=== PATIENT | male | born 1945 | race Caucasian/White ===

== ENCOUNTER → 2019-07-29 | Outpatient (CLI) | payer MEDICARE | END | disposition home or self-care (01) | LOC: LABWHC1 12:43 | PROVIDERS: ATTEND Urology | DX: C61 Malignant neoplasm of prostate (principal) | CPT/HCPCS: 36415; 84153; 84403 ==

== ENCOUNTER → 2019-09-16 | Outpatient (CLI) | payer MEDICARE ==
--- NOTE | 2019-09-16 12:58 | XR ---
EXAMINATION TYPE: XR KUB DATE OF EXAM: 09/16/2019 12:34 PM CLINICAL HISTORY: Kidney stone. TECHNIQUE: Two Upright KUB images of the abdomen are obtained. COMPARISON: IVP October 31, 2011. FINDINGS: There are 2 adjacent right renal calculi overlying the right 12th rib midpole level right k idney measuring up to 5 mm in size. No definitive left-sided nephrolithiasis. Right more numerous janett n left pelvic phleboliths. Overall nonspecific but favor nonobstructive bowel gas pattern. Moderate s ize hiatal hernia is present. Patchy left lateral basilar linear scarring and/or atelectasis. Moderat e narrowing of both hip joints. IMPRESSION: There are 2 nonobstructing right renal calculi midpole level.
== END | disposition home or self-care (01) ==
LOC: RADXRMAIN 12:15
PROVIDERS: ATTEND Urology
DX: N20.0 Calculus of kidney (principal)
CPT/HCPCS: 74018

== ENCOUNTER → 2020-02-08 | Outpatient (CLI) | payer MEDICARE | END | disposition home or self-care (01) | LOC: LABWHC1 13:05 | PROVIDERS: ATTEND Urology | DX: C61 Malignant neoplasm of prostate (principal) | CPT/HCPCS: 36415; 84153; 84403 ==

== ENCOUNTER → 2020-08-20 | Outpatient (CLI) | payer MEDICARE ==
[2020-08-20 22:05] LABS: Prostate Specific Antigen <0.1 ng/mL (0.0-6.5)
== END | disposition home or self-care (01) ==
LOC: LABWHC1 13:39
PROVIDERS: ATTEND Urology
DX: C61 Malignant neoplasm of prostate (principal)
CPT/HCPCS: 36415; 84153; 84403

== ENCOUNTER → 2021-07-12 | Outpatient (CLI) | payer MEDICARE ==
[2021-07-12 16:35] LABS: African American GFR (CKD) >90 (>60 ml/min/1.73 sqM); Blood Urea Nitrogen 19 mg/dL (9-20); Non-African American GFR(CKD) >90 (>60 ml/min/1.73 sqM)
--- NOTE | 2021-07-15 07:19 | CT ---
EXAMINATION TYPE: CT abdomen pelvis wo/w con DATE OF EXAM: 07/12/2021 COMPARISON: None HISTORY: flank pain, hx of stones CT DLP: 1944.2 mGycm Automated exposure control for dose reduction was used. CONTRAST: CT scan of the abdomen pelvis is performed without and with IV Contrast, patient injected with 100 mL of Isovue 300. FINDINGS- Coronary artery calcification is noted there is a large hiatal hernia. Lung bases demonstrate linear changes most scar or atelectasis Lack of contrast limits assessment of the abdominal viscera and bowel. Grossly no sizable gallstone. Visualized liver and spleen are homogeneous. Adrenal glands normal morphology. Pancreas demonstrates no definite abnormality. There is a 8 mm mid pole right renal calculus. No hydronephrosis. Subcentimeter hypodensities within the left kidney are too small to characterize but statistically mo st likely related to cysts. Bowel gas pattern nonspecific. There is an anterior abdominal wall hernia containing several loops of bowel but no evidence of obstruction. Bladder distends normally. Calcifications in the pelvis appear vascular. Hypertrophic and degenerative changes of the spine. Atherosclerotic change aorta. IMPRESSION- 1. Nonobstructing 7 mm right renal calculus with no hydronephrosis. 2. Anterior abdominal wall hernia containing several bowel loops but no evidence of obstruction. 3. Large hiatal hernia. 4. Coronary artery calcification
== END | disposition home or self-care (01) ==
LOC: RADCTMAIN 15:34
PROVIDERS: ATTEND Urology
DX: C61 Malignant neoplasm of prostate (principal); N20.0 Calculus of kidney; R31.0 Gross hematuria; K44.9 Diaphragmatic hernia without obstruction or gangrene; K43.9 Ventral hernia without obstruction or gangrene; I25.10 Atherosclerotic heart disease of native coronary artery without angina pectoris
CPT/HCPCS: 82565; 84520; 74178; 36415; Q9967

== ENCOUNTER → 2021-07-25 | Outpatient (CLI) | payer MEDICARE ==
[2021-07-25 11:22] LABS: Basophils # (A) 0.1 k/uL (0-0.2); Basophils % (A) 1 %; Eosinophils # (A) 0.1 k/uL (0-0.7); Eosinophils % (A) 2 %; HGB 14.5 gm/dL (13.0-17.5); Lymphocytes % (A) 19 %; MCH 33.4 pg (25.0-35.0); MCHC 33.8 g/dL (31.0-37.0); MCV 98.9 fL (80.0-100.0); Mean Platelet Volume 7.8; Monocytes # (A) 0.5 k/uL (0-1.0); Monocytes % (A) 10 %; Neutrophils # (A) 3.5 k/uL (1.3-7.7); Neutrophils % (A) 66 %; Platelet Count 272 k/uL (150-450); RBC 4.35 m/uL (4.30-5.90); RDW 14.1 % (11.5-15.5); WBC 5.2 k/uL (3.8-10.6)
[2021-07-25 11:33] LABS: African American GFR (CKD) >90 (>60 ml/min/1.73 sqM); Anion Gap 9 mmol/L; Blood Urea Nitrogen 7 mg/dL (9-20); Calcium 9.8 mg/dL (8.4-10.2); Carbon Dioxide 23 mmol/L (22-30); Chloride 103 mmol/L (98-107); Glucose 159 mg/dL (74-99); Non-African American GFR(CKD) >90 (>60 ml/min/1.73 sqM); Potassium 4.5 mmol/L (3.5-5.1); Sodium 135 mmol/L (137-145)
== END | disposition home or self-care (01) ==
LOC: LABPAT 10:12
PROVIDERS: ATTEND Urology
DX: N20.0 Calculus of kidney (principal); N32.0 Bladder-neck obstruction
CPT/HCPCS: 36415; 80048; 85025

== ENCOUNTER 2021-08-02 07:03 | Day surgery (SDC) | payer MEDICARE ==
[2021-07-29 08:51] VITALS: BMI 27.3
--- NOTE | 2021-08-02 07:00 | P.GSHP ---
History of Present Illness H&P Date: 08/02/21 Chief Complaint: Back pain The patient is a 76-year-old white male with a history of prostate cancer. He underwent a robotic-assisted laparoscopic prostatectomy in 2013. He also has a history of kidney stones. KUB x-ray shows a 9 [address] renal calculus. CT scan confirms the presence of an 8 mm right mid pole renal calculus with no hydronephrosis. Alternative treatment options were reviewed, and he has elected to undergo ureteroscopy with laser lithotripsy. - Constitutional Constitutional: Reports weakness, Reports weight loss, Denies chills, Denies fever - Gastrointestinal Gastrointestinal: Denies nausea, Denies vomiting - Genitourinary (Male) Genitourinary: Reports flank pain, Reports kidney stones, Denies hematuria Past Medical History Past Medical History: Cancer, CVA/TIA, Hyperlipidemia, Hypertension Additional Past Medical History / Comment(s): kidney stones,hx 'mini" stroke approx 20 yrs ago-no residual,prostate CA 2013-no radiation or chemo History of Any Multi-Drug Resistant Organisms: None Reported Past Surgical History: Prostate Surgery Additional Past Surgical History / Comment(s): prostatectomy Past Anesthesia/Blood Transfusion Reactions: No Reported Reaction Additional Past Anesthesia/Blood Transfusion Reaction / Comment(s): no hx blood transfusion Smoking Status: Never smoker - Past Family History Mother Family Medical History: No Reported History Medications and Allergies Home Medications Medication Instructions Recorded Confirmed Type Metoprolol Tartrate [Lopressor] 50 mg PO HS 06/30/14 07/29/21 History Omeprazole [PriLOSEC] 20 mg PO QAM 06/30/14 07/29/21 History Atorvastatin Calcium [Lipitor] 20 mg PO DAILY 07/29/21 07/29/21 History Losartan Potassium [Cozaar] 25 mg PO QAM 07/29/21 07/29/21 History Allergies Allergy/AdvReac Type Severity Reaction Status Date / Time No Known Allergies Allergy Verified 07/29/21 08:36 Surgical - Exam - General well developed, well nourished, no distress - Respiratory normal respiratory effort - Abdomen Abdomen: soft, non tender, no guarding, no rigid, no rebound - Genitourinary normal penis with no external lesions, testicles non-tender - Psychiatric oriented to time, oriented to person, oriented to place, speech is normal, memory intact Results - Imaging CT scan - abdomen: report reviewed, image reviewed Assessment and Plan (1) Calculus of kidney Status: Acute Code(s): N20.0 - CALCULUS OF KIDNEY SNOMED Code(s): 30036904 Plan: Cystoscopy, right ureteroscopy with Holmium laser lithotripsy and possible stone basketing, right ureteral stent insertion. The procedure then reviewed in detail with the patient. He is aware of potential risks, which include anesthesia, bleeding, infection, and ureteral injury. He reports a weak urinary stream, and may have a vesical neck contracture. If this is identified, this will be incised using the cold knife. He is aware that this could result in incontinence.
[~2021-08-02 07:03] MED LIST: LIDOCAINE 1% (10MG/ML) FOR IV START INTRADERMA PRN
[2021-08-02] MEDS ORDERED: ONDANSETRON 4 MG/2 ML VIAL ONE (07:56)
[2021-08-02] MEDS: LACTATED RINGERS 1,000 ML IV SCH ×2 (07:57→08:51)
--- NOTE | 2021-08-02 08:09 | XR ---
EXAMINATION TYPE: XR KUB DATE OF EXAM: 08/02/2021 7:19 AM CLINICAL HISTORY: Kidney stones TECHNIQUE: Two supine KUB images of the abdomen are obtained. COMPARISON: CT abdomen and pelvis July 12, 2021 FINDINGS: Roughly 3 adjacent right renal calculi redemonstrated measuring up to 6 mm in size centrall y in the right kidney at L1 level. Inferior pelvic phleboliths redemonstrated. No definitive left-leatha ed nephrolithiasis. Paucity of bowel gas but favor overall nonobstructive bowel gas pattern. Moderate size hiatal hernia redemonstrated. Osseous structures are intact. IMPRESSION: Right-sided nephrolithiasis redemonstrated and stable.
[2021-08-02] MEDS ORDERED: fentaNYL (PF) 50 MCG/ML 2 ML AMP ONE (08:49)
[2021-08-02] MEDS ORDERED: DEXAMETHASONE SOD PHOSPHATE 10 MG/ML 1 ML VIAL ONE (08:49)
[2021-08-02] MEDS ORDERED: PROPOFOL 10 MG/ML 20 ML VIAL IV ONE (08:49)
[2021-08-02] MEDS ORDERED: LIDOCAINE 1% INJ 10MG/ML (20 ML MDV) ONE (08:49)
[2021-08-02] MEDS ORDERED: PHENYLEPHRINE-0.9% NACL SYG 1,000 MCG/10 ML SYRINGE ONE (08:49)
--- NOTE | 2021-08-02 10:47 | P.OP ---
Date of Procedure: 08/02/21 Preoperative Diagnosis: Right renal calculus Postoperative Diagnosis: Same Procedure(s) Performed: Cystoscopy, right ureteroscopy with Holmium laser lithotripsy and stone basketing, right ureteral stent insertion Anesthesia: PIERRE Surgeon: Juan Ramon Nixon Estimated Blood Loss (ml): 5 IV fluids (ml): 900 Pathology: other (Calculus fragments, sent for chemical analysis) Condition: stable Disposition: PACU Indications for Procedure: The patient is a 76-year-old white male with a history of prostate cancer. He underwent a robotic-assisted laparoscopic prostatectomy in 2013. He also has a history of kidney stones. KUB x-ray shows a 9 mm right renal calculus. CT scan confirms the presence of an 8 mm right mid pole renal calculus with no hydronephrosis. Alternative treatment options were reviewed, and he has elected to undergo ureteroscopy with laser lithotripsy. Operative Findings: 9 mm right renal calculus, fragmented completely. Description of Procedure: The patient was taken to the operating room and placed in the dorsolithotomy position, with legs supported in Heath stirrups. The external genitalia was prepped and draped sterilely. The 30 lens was used to introduce the 21-Beninese Amato cystoscopic sheath through the urethra and into the bladder under direct vision. The bladder neck was open, with no evidence of a vesical neck contracture. The bladder was examined in its entirety. Both ureteral orifices were normal anatomic location and configuration, and clear urine effluxed from both. No tumors or foreign bodies were seen. A 0.038 inch Glidewire was passed through the cystoscope. The right ureteral orifice was cannulated, and the Glidewire was advanced up to the renal pelvis. The cystoscope was removed, and an 11/13-Beninese ureteral access catheter was pas sed over the wire, up to the proximal ureter. The flexible ureteroscope was then passed through the ureteral access catheter sheath, up to the stone. The 272 micron Holmium laser probe was passed through the ureteroscope, and lithotripsy was performed. Dusting mode was used primarily, but the calculus began to fragment and the 1.9-Beninese nitinol basket was used to remove all calculus fragments, leaving only dust behind. The Glidewire was passed through the ureteral access catheter sheath, which was then removed. The Glidewire was backloaded into the cystoscope, which was passed into the bladder. A 26 cm, 4.8-Beninese double-J ureteral stent was placed over the wire, leaving the string attached to the stent. Proper stent positioning was verified fluoroscopically and endoscopically. The bladder was emptied and the cystoscope removed. Tegaderm dressing was used to secure the string to the penile shaft. The patient tolerated the procedure well and was taken to the recovery room in stable condition. [facility] Report: Procedure Acuity: Elective Stone Size and Location: 9 mm, right mid pole Ureteral Dilation: No Ureteral Access Sheath Used: Yes Stone Sent for Analysis: Yes All Stones/Fragments Were Removed with a Basket: Yes Complications: No Preoperative Antibiotics Given: Yes Stent Placed: Yes If Stent Placed, Was String Left Attached: Yes If Stent Placed, When is it to be Removed: 1 week Discharge Medications: None
--- NOTE | 2021-08-02 10:54 | FL ---
EXAMINATION TYPE: FL guidance operating room DATE OF EXAM: 08/02/2021 FLUOROSCOPY Fluoroscopy time of 34 seconds was used during cystoscopy, lithotripsy, right renal calculus. 4 imag e/s document/s the procedure.
[2021-08-02 11:00] VITALS: TEMP 96.8
[2021-08-02 11:59] VITALS: BP 156/85; PULSE 57; RESP 20
== END 2021-08-02 12:35 | disposition home or self-care (01) ==
LOC: OR 07:03
PROVIDERS: ATTEND Urology
DX: N20.0 Calculus of kidney (principal); E78.5 Hyperlipidemia, unspecified; I10 Essential (primary) hypertension; Z86.73 Personal history of transient ischemic attack (TIA), and cerebral infarction without residual deficits; Z85.46 Personal history of malignant neoplasm of prostate; Z90.79 Acquired absence of other genital organ(s); Z87.442 Personal history of urinary calculi; Z79.899 Other long term (current) drug therapy
CPT/HCPCS: 82365; 74018; 52356; C2625; J1100; J2405; J0690; J2001; J3010; J2370; J2704

== ENCOUNTER → 2021-09-30 | Outpatient (CLI) | payer MEDICARE ==
--- NOTE | 2021-10-01 10:43 | US ---
EXAMINATION TYPE: US kidneys/renal and bladder DATE OF EXAM: 09/30/2021 COMPARISON: CT July 12, 2021 CLINICAL HISTORY: N20.0 CALCULUS OF KIDNEY RT. H/O right renal calculus EXAM MEASUREMENTS: Right Kidney: 10.8 x 5.1 x 5.2 cm Left Kidney: 9.6 x 5.0 x 4.3 cm Difficult pt to scan, heavy breathing, moving Right Kidney: No evidence of hydro, possible 9mm calculus visualized mid pole Left Kidney: No evidence of hydro Bladder: wnl Bilateral Jets seen: No Suboptimal study due to patient inability to hold still. Shadowing 8-9 Mm nonobstructing right renal calculus redemonstrated. No hydronephrosis is seen. Bladder poorly distended and thus suboptimally ev aluated. No left-sided hydronephrosis or concerning renal masses. IMPRESSION: Stable nonobstructing 8 mm right renal calculus.
== END | disposition home or self-care (01) ==
LOC: RADUSWWP 15:16
PROVIDERS: ATTEND Urology
DX: N20.0 Calculus of kidney (principal)
CPT/HCPCS: 76770

== ENCOUNTER 2021-12-17 16:09 | Emergency (ER) | payer MEDICARE ==
[2021-12-17] MEDS ORDERED: SODIUM CHLORIDE 0.9% 1,000 ML IV STA ×2 (17:28→18:15)
[2021-12-17] MEDS ORDERED: ONDANSETRON 4 MG/2 ML VIAL IVP STA (17:28)
[2021-12-17] MEDS ORDERED: HYDROmorphone 0.5 MG/0.5 ML SYRINGE IVP STA (17:40)
[2021-12-17 18:00] LABS: ALT 119 U/L (4-49); AST 215 U/L (17-59); African American GFR (CKD) >90 (>60 ml/min/1.73 sqM); Albumin 3.5 g/dL (3.5-5.0); Alkaline Phosphatase 323 U/L (38-126); Anion Gap 15 mmol/L; Blood Urea Nitrogen 15 mg/dL (9-20); Calcium 9.4 mg/dL (8.4-10.2); Carbon Dioxide 19 mmol/L (22-30); Chloride 101 mmol/L (98-107); Glucose 168 mg/dL (74-99); Magnesium 1.6 mg/dL (1.6-2.3); Non-African American GFR(CKD) 89 (>60 ml/min/1.73 sqM); Phosphorus 2.8 mg/dL (2.5-4.5); Potassium 4.1 mmol/L (3.5-5.1); Sodium 135 mmol/L (137-145); Total Protein 7.5 g/dL (6.3-8.2)
--- NOTE | 2021-12-17 18:01 | ED ---
General Adult HPI - General Chief complaint: Nausea/Vomiting/Diarrhea Stated complaint: Recheck Time Seen by Provider: 12/17/21 17:15 Source: patient, family Mode of arrival: ambulatory Limitations: no limitations - History of Present Illness Initial comments: Patient is a 76-year-old male who presents to the emergency department with a chief complaint of dehydration and constipation. Patient was sent in for evaluation by Dr. Gogo guy. Patient was evaluated here on 12/05/21 for altered mental status with TIA diagnosis. At this time MRI of the brain favored an arachnoid cyst as well as 2 right sided intraparenchymal lesions. Metastatic disease could not be ruled out. Patient also had elevated AST, ALT, and alk phos. Pt subsequently had abdominal ultrasound which revealed possible stones in the gallbladder neck with dilated common bile duct. He also had a CT of the chest abdomen and pelvis which had concern for pancreatic head adenocarcinoma. Patient states he has not had a biopsy yet. Patient has been living at [facility] since discharge but states he is too weak to perform activities of daily living there. Patient continues to have severe back pain which he states is unchanged from before and was told it is likely due to the pancreatic mass. He denies recent back injury. Patient states he has not been eating or drinking due to na usea and lack of appetite. He denies vomiting. Patient states he is constipated with last bowel movement 1 week ago. He denies fever, chills, chest pain, shortness of breath, abdominal pain, blood in the stool, and urinary symptoms. Patient's friend is at bedside and states that his skin has become more yellow in the past week. Patient does have history of prostate cancer with prostatectomy in June 2014. Last PSA was checked in June 2021 which was less than 0.01. - Related Data Home Medications Medication Instructions Recorded Confirmed Atorvastatin Calcium [Lipitor] 20 mg PO DAILY 07/29/21 12/05/21 Cyclobenzaprine [Flexeril] 10 mg PO BID PRN 12/05/21 12/05/21 FLUoxetine HCL 40 mg PO BID 12/05/21 12/05/21 Loratadine [Claritin] 10 mg PO DAILY 12/05/21 12/05/21 Metoprolol Tartrate [Lopressor] 25 mg PO HS 12/05/21 12/05/21 HYDROcodone/APAP 7.5-325MG [[place] 1 tab PO Q4H PRN 12/17/21 12/17/21 7.5-325] Insulin Lispro [humaLOG Kwikpen] 5 unit SQ ACHS 12/17/21 12/17/21 Pantoprazole [Protonix] 40 mg PO DAILY 12/17/21 12/17/21 Tamsulosin [Flomax] 0.4 mg PO HS 12/17/21 12/17/21 Previous Rx's Medication Instructions Recorded Acetaminophen Tab [Tylenol] 650 mg PO Q6HR PRN tab 12/09/21 Cholestyramine (with Sugar) 4 gm PO BID #60 packet 12/09/21 [Questran] Doxycycline [Vibramycin] 100 mg PO BID 7 Days #14 capsule 12/09/21 Folic Acid 1 mg PO DAILY tab 12/09/21 Magnesium Oxide [Mag-Ox] 400 mg PO BID tab 12/09/21 Allergies Allergy/AdvReac Type Severity Reaction Status Date / Time No Known Allergies Allergy Verified 12/17/21 19:19 Review of Systems ROS Statement: Those systems with pertinent positive or pertinent negative responses have been documented in the HPI. ROS Other: All systems not noted in ROS Statement are negative. Past Medical History Past Medical History: CVA/TIA, Hyperlipidemia, Hypertension Additional Past Medical History / Comment(s): Mother and sister state lately pt has been acting differently/not eating much and losing alot of weight. Other hx: CVA with alittle R sided weakness, prostate cancer with surgery, nephrolithiasis removed with surgery, chronic low back pain, small hiatal hernia, benign colon polyps, hemorrhoids, anemia. History of Any Multi-Drug Resistant Organisms: MRSA Date of last positivie culture/infection: 12/05/21 MDRO Source:: MRSA URINE Past Surgical History: Unable to Obtain Additional Past Surgical History / Comment(s): Cysto with R sided lithotripsy with stone basketing and ureteral stent placed, prostatectomy, EGD with dilation, colonoscopies. Past Anesthesia/Blood Transfusion Reactions: No Reported Reaction Past Psychological History: Bipolar, Depression Smoking Status: Never smoker Past Alcohol Use History: None Reported Past Drug Use History: None Reported - Past Family History Father Family Medical History: Myocardial Infarction (PR) Additional Family Medical History / Comment(s): Father had 7 MIs with the first one at age 37 yrs. He had CABG Mother Family Medical History: Diabetes Mellitus Additional Family Medical History / Comment(s): recent hip fracture with surgery. General Exam Limitations: no limitations General appearance: alert, in no apparent distress Head exam: Present: atraumatic, normocephalic, normal inspection Eye exam: Present: PERRL, EOMI, scleral icterus, other (enopthlamos ). Absent: normal appearance ENT exam: Present: mucous membranes dry Respiratory exam: Present: normal lung sounds bilaterally. Absent: respiratory distress, wheezes, rales, rhonchi, stridor Cardiovascular Exam: Present: regular rate, normal rhythm, normal heart sounds. Absent: systolic murmur, diastolic murmur, rubs, gallop, clicks GI/Abdominal exam: Present: soft, normal bowel sounds. Absent: distended, tenderness, guarding, rebound, rigid Extremities exam: Absent: pedal edema Back exam: Present: normal inspection, full ROM. Absent: tenderness, paraspinal tenderness, vertebral tenderness Neurological exam: Present: alert, oriented X3, CN II-XII intact Psychiatric exam: Present: normal affect, normal mood Skin exam: Present: warm, dry, intact, other (skin is moderately jaundiced). Absent: normal color Course Vital Signs 12/17/21 16:11 Temperature 96.8 F L Pulse Rate 84 Respiratory 24 Rate Blood Pressure 105/67 O2 Sat by Pulse 96 Oximetry - Reevaluation(s) Reevaluation #1: Patient resting comfortably in bed. He states his pain is well controlled and he no longer feels nauseous. 12/17/21 20:07 EKG Findings - EKG Comments: EKG Findings:: KG taken at 18:24. Sinus rhythm with occasional supraventricular premature complexes. Ventricular rate 86. CO interval 208. QRS duration 89. QTc 442 Medical Decision Making - Medical Decision Making This is a 76-year-old male who presents from Dr. Bowens's office for severe dehydration and constipation. Thorough history and examination were performed. 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 Patient is jaundiced with scleral icterus and appears severely dehydrated with enophthalmos. The abdomen is soft and nontender. Total bilirubin, AST, and alk phos are increased from last blood draw on 12/09/21 at 11.0, 215, and 323 respectively. Patient was given large fluid bolus and Zofran for nausea. Dilaudid was given for severe back pain. KUB x-ray was obtained which showed no evidence of significant constipation. Results discussed with patient. Patient and I discussed the necessity for biliary stent. At this time we do not have GI services. Patient is agreeable to [facility] transfer for biliary stent placement and pancreatic biopsy. Reevaluation patient is resting in bed. He states that his pain is well controlled and he is no longer nauseous. Case discussed with Dr. Thompson at [facility]. Patient will be transferred to [facility] for further evaluation and management. Dr. Lovell is my attending. - Lab Data Result diagrams: 12/17/21 17:38 12/17/21 17:38 Lab Results 12/17/21 12/17/21 Range/Units 17:38 17:38 WBC 6.8 (3.8-10.6) k/uL RBC 4.60 (4.30-5.90) m/uL Hgb 15.4 (13.0-17.5) gm/dL Hct 47.3 (39.0-53.0) % MCV 102.8 H (80.0-100.0) fL MCH 33.4 (25.0-35.0) pg MCHC 32.5 (31.0-37.0) g/dL RDW 15.3 (11.5-15.5) % Plt Count 281 (150-450) k/uL MPV 10.1 Neutrophils % 75 % Lymphocytes % 12 % Monocytes % 9 % Eosinophils % 1 % Basophils % 1 % Neutrophils # 5.1 (1.3-7.7) k/uL Lymphocytes # 0.8 L (1.0-4.8) k/uL Monocytes # 0.6 (0-1.0) k/uL Eosinophils # 0.1 (0-0.7) k/uL Basophils # 0.1 (0-0.2) k/uL Macrocytosis Slight Sodium 135 L (137-145) mmol/L Potassium 4.1 (3.5-5.1) mmol/L Chloride 101 (98-107) mmol/L Carbon Dioxide 19 L (22-30) mmol/L Anion Gap 15 mmol/L BUN 15 (9-20) mg/dL Creatinine 0.77 (0.66-1.25) mg/dL Est GFR (CKD-EPI)AfAm >90 (>60 ml/min/1.73 sqM) Est GFR (CKD-EPI)NonAf 89 (>60 ml/min/1.73 sqM) Glucose 168 H (74-99) mg/dL Calcium 9.4 (8.4-10.2) mg/dL Phosphorus 2.8 (2.5-4.5) mg/dL Magnesium 1.6 (1.6-2.3) mg/dL Total Bilirubin 11.0 H (0.2-1.3) mg/dL AST 215 H (17-59) U/L ALT 119 H (4-49) U/L Alkaline Phosphatase 323 H (38-126) U/L Total Protein 7.5 (6.3-8.2) g/dL Albumin 3.5 (3.5-5.0) g/dL Disposition Clinical Impression: Hyperbilirubinemia, Weakness, Dehydration Disposition: OTHER INSTITUTION NOT DEFINED Condition: Fair Is patient prescribed a controlled substance at d/c from ED?: No Referrals: Neli Chacon [Primary Care Provider] - 1-2 days Time of Disposition: 20:31 - Out of Hospital Transfer - Req. Specs Out of Hospital Transfer - Requested Specifics: Other Non-Acute ([facility])
--- NOTE | 2021-12-17 18:18 | XR ---
EXAMINATION TYPE: XR KUB DATE OF EXAM: 12/17/2021 COMPARISON: 08/02/2021 HISTORY: Constipation TECHNIQUE: 2 views supine FINDINGS: There is no sign of intestinal obstruction or pneumoperitoneum. Fecal pattern is normal. Th ere is no evidence of any significant constipation. Lung bases are clear. There is 5 mm calcification over the lateral right mid abdomen. IMPRESSION: Nonacute abdomen. No evidence of any significant constipation.
[2021-12-17 18:22] LABS: Basophils # (A) 0.1 k/uL (0-0.2); Basophils % (A) 1 %; Eosinophils # (A) 0.1 k/uL (0-0.7); Eosinophils % (A) 1 %; HCT 47.3 % (39.0-53.0); HGB 15.4 gm/dL (13.0-17.5); Lymphocytes # (A) 0.8 k/uL (1.0-4.8); Lymphocytes % (A) 12 %; MCH 33.4 pg (25.0-35.0); MCHC 32.5 g/dL (31.0-37.0); MCV 102.8 fL (80.0-100.0); Macrocytosis Slight; Mean Platelet Volume 10.1; Monocytes # (A) 0.6 k/uL (0-1.0); Monocytes % (A) 9 %; Neutrophils # (A) 5.1 k/uL (1.3-7.7); Neutrophils % (A) 75 %; Platelet Count 281 k/uL (150-450); RDW 15.3 % (11.5-15.5); WBC 6.8 k/uL (3.8-10.6)
[2021-12-18 00:18] VITALS: BP 115/84; PULSE 79; RESP 19; TEMP 97.7
== END 2021-12-18 05:50 | disposition other institution (70) ==
LOC: EC 16:09
DX: E80.6 Other disorders of bilirubin metabolism (principal); E86.0 Dehydration; R53.1 Weakness; I10 Essential (primary) hypertension; Z86.73 Personal history of transient ischemic attack (TIA), and cerebral infarction without residual deficits; Z82.49 Family history of ischemic heart disease and other diseases of the circulatory system; Z20.822 Contact with and (suspected) exposure to COVID-19
CPT/HCPCS: 99284; 96374; 96375; 96361; 36415; 93005; 80053; 83735; 84100; 85025; 87635; 74018; J2405; J1170

== ENCOUNTER 2021-12-26 15:48 | Emergency (ER) | payer MEDICARE ==
[2021-12-26 16:05] VITALS: TEMP 97.7
[2021-12-26] MEDS ORDERED: SODIUM CHLORIDE 0.9% 500 ML 500 ML IV STA (18:37)
[2021-12-26] MEDS ORDERED: ONDANSETRON 4 MG/2 ML VIAL IVP STA ×2 (18:37→19:45)
[2021-12-26] MEDS ORDERED: MORPHINE SULFATE 4 MG/ML SYRINGE IV STA (18:37)
--- NOTE | 2021-12-26 18:44 | ED ---
Abdominal Pain HPI - General Chief Complaint: Abdominal Pain Stated Complaint: pain all over Time Seen by Provider: 12/26/21 18:32 Source: EMS Mode of arrival: EMS Limitations: physical limitation - History of Present Illness Initial Comments: 76-year-old male with a history of hyperlipidemia, hypertension, and previous TIAs. Patient has a history of prostate cancer with surgery. Patient also had a CVA with some residual right-sided weakness. Patient states he has had intermittent sharp lower abdominal pain more on the left side which started yesterday. Patient also states he has not had a bowel movement in over one week. Patient apparently voiced this to custodial staff and was sent here for evaluation. He denies any nausea or vomiting. Patient admittedly does not feel he is getting adequate care at the facility. No alleviating or exacerbating factors other than palpation. Patient states the pain does seem to radiate toward the groin area. No headache, no fever or chills, no changes in vision or hearing, no sore throat or difficulty with speech, no neck pain, no chest pain or shortness of breath, no nausea or vomiting, no changes in urination s, no numbness or tingling, no extremity pain, no skin rashes or lesions. - Related Data Home Medications Medication Instructions Recorded Confirmed Atorvastatin Calcium [Lipitor] 20 mg PO HS 07/29/21 12/26/21 Cyclobenzaprine [Flexeril] 10 mg PO BID PRN 12/05/21 12/26/21 FLUoxetine HCL 40 mg PO BID 12/05/21 12/26/21 Tamsulosin [Flomax] 0.4 mg PO DAILY 12/17/21 12/26/21 Acetaminophen Tab [Tylenol] 325 - 650 mg PO Q6HR PRN 12/26/21 12/26/21 Aspirin EC [Ecotrin Low Dose] 81 mg PO DAILY 12/26/21 12/26/21 Enoxaparin [Lovenox] 40 mg SQ DAILY 12/26/21 12/26/21 Magnesium Hydroxide [Milk of 2,400 mg PO Q72H PRN 12/26/21 12/26/21 Magnesia] Metoprolol Succinate (ER) [Toprol 25 mg PO DAILY 12/26/21 12/26/21 Xl] Na Phos,M-B/Na Phos,Di-Ba [Fleet 133 ml RECTAL DAILY PRN 12/26/21 12/26/21 Adult] Sennosides/Docusate Sodium [Senna 1 tab PO DAILY 12/26/21 12/26/21 Plus 8.6-50 mg Tablet] bisacodyL [Dulcolax] 10 mg RECTAL DAILY PRN 12/26/21 12/26/21 polyethylene glycoL 3350 [Miralax] 17 gm PO DAILY 12/26/21 12/26/21 Allergies Allergy/AdvReac Type Severity Reaction Status Date / Time No Known Allergies Allergy Verified 12/26/21 23:01 Review of Systems ROS Statement: Those systems with pertinent positive or pertinent negative responses have been documented in the HPI. ROS Other: All systems not noted in ROS Statement are negative. Past Medical History Past Medical History: CVA/TIA, Hyperlipidemia, Hypertension Additional Past Medical History / Comment(s): Mother and sister state lately pt has been acting differently/not eating much and losing alot of weight. Other hx: CVA with alittle R sided weakness, prostate cancer with surgery, nephrolithiasis removed with surgery, chronic low back pain, small hiatal hernia, benign colon polyps, hemorrhoids, anemia. History of Any Multi-Drug Resistant Organisms: MRSA Date of last positivie culture/infection: 12/05/21 MDRO Source:: MRSA URINE Past Surgical History: Unable to Obtain Additional Past Surgical History / Comment(s): Cysto with R sided lithotripsy with stone basketing and ureteral stent placed, prostatectomy, EGD with dilation, colonoscopies. Past Anesthesia/Blood Transfusion Reactions: No Reported Reaction Past Psychological History: Bipolar, Depression Smoking Status: Never smoker Past Alcohol Use History: None Reported Past Drug Use History: None Reported - Past Family History Father Family Medical History: Myocardial Infarction ([place]) Additional Family Medical History / Comment(s): Father had 7 MIs with the first one at age 37 yrs. He had CABG Mother Family Medical History: Diabetes Mellitus Additional Family Medical History / Comment(s): recent hip fracture with surgery. General Exam Limitations: physical limitation General appearance: alert, in no apparent distress Head exam: Present: atraumatic, normocephalic, normal inspection Eye exam: Present: normal appearance, PERRL, EOMI. Absent: scleral icterus, conjunctival injection, periorbital swelling ENT exam: Present: normal exam, normal oropharynx, mucous membranes moist Neck exam: Present: normal inspection, full ROM. Absent: tenderness, meningismus, lymphadenopathy Respiratory exam: Present: normal lung sounds bilaterally. Absent: respiratory distress, wheezes, rales, rhonchi, stridor Cardiovascular Exam: Present: regular rate, normal rhythm, normal heart sounds. Absent: systolic murmur, diastolic murmur, rubs, gallop, clicks GI/Abdominal exam: Present: soft, tenderness (Left lower quadrant), normal bowel sounds. Absent: distended, guarding, rebound, rigid exam: Present: circumcision, other (Patient does have a nondescript rash noted to the scrotal area. However this is not vesicular. Does not appear to be infectious in etiology. Not unilateral, does not follow a dermatome. No definitive tenderness, no edema). Absent: testicular tenderness, urethral discharge, scrotal swelling Extremities exam: Present: normal inspection, full ROM, normal capillary refill. Absent: tenderness, pedal edema, joint swelling, calf tenderness Back exam: Present: normal inspection Neurological exam: Present: alert, oriented X3, CN II-XII intact Psychiatric exam: Present: normal affect, normal mood Skin exam: Present: warm, dry, intact, normal color. Absent: rash Course Vital Signs 12/26/21 12/26/21 12/26/21 15:59 18:16 19:00 Temperature 97.7 F Pulse Rate 63 70 72 Respiratory 12 14 20 Rate Blood Pressure 140/87 133/95 133/89 O2 Sat by Pulse 100 94 L 98 Oximetry 12/26/21 12/26/21 12/26/21 21:00 22:00 23:08 Temperature Pulse Rate 75 76 76 Respiratory 18 18 18 Rate Blood Pressure 119/84 108/76 104/72 O2 Sat by Pulse 96 95 97 Oximetry - Reevaluation(s) Reevaluation #1: 12/26/211999 Medical record is reviewed Symptoms are improved Patient is informed of results and questions answered Patient in no distress Reevaluation #2: 12/26/21 23:51 Medical record is reviewed Symptoms are improved here in the emergency department Patient is informed of results and questions answered Patient in no distress Patient stable at discharge. Vital signs stable, patient afebrile. Medical Decision Making - Medical Decision Making Left lower quadrant and lower abdominal pain radiating to the groin area. Differential includes constipation, diverticulitis, other inflammatory versus infectious etiology. Less likely to be testicular related. Patient does have a nondescript rash noted to the scrotal area which is bilaterally. Does not appear to be infectious in etiology. Urinary tract infection possible but less likely. Presentation consistent with cardiopulmonary disease. There is no upper abdominal pain, no chest pain or shortness of breath. Apparently the patient has a history of pancreatic cancer and was supposed to have a hospice appointment today for evaluation. Patient became upset with staf f and verbally threatening them. He then called EMS for transport here. The case was discussed in detail with ED attending physician. Presentation, findings, treatment plan discussed in detail. Dr. Morales Patient's findings consistent with previous pancreatic mass. No findings in need of admission. We'll treat the patient's constipation. All questions answered.Follow-up with your regular physician as directed. Return to the ER immediately if any symptoms worsen, new symptoms arise, or any other problems develop. We'll notify the custodial. - Lab Data Result diagrams: 12/26/21 19:02 12/26/21 19:02 Lab Results 12/26/21 12/26/21 12/26/21 Range/Units 19:02 19:02 19:02 WBC 5.8 (3.8-10.6) k/uL RBC 3.97 L (4.30-5.90) m/uL Hgb 13.5 (13.0-17.5) gm/dL Hct 40.4 (39.0-53.0) % MCV 101.7 H (80.0-100.0) fL MCH 34.0 (25.0-35.0) pg MCHC 33.4 (31.0-37.0) g/dL RDW 15.5 (11.5-15.5) % Plt Count 225 (150-450) k/uL MPV 10.2 Neutrophils % 62 % Lymphocytes % 20 % Monocytes % 12 % Eosinophils % 2 % Basophils % 1 % Neutrophils # 3.6 (1.3-7.7) k/uL Lymphocytes # 1.2 (1.0-4.8) k/uL Monocytes # 0.7 (0-1.0) k/uL Eosinophils # 0.1 (0-0.7) k/uL Basophils # 0.0 (0-0.2) k/uL Macrocytosis Slight Sodium 134 L (137-145) mmol/L Potassium 3.8 (3.5-5.1) mmol/L Chloride 104 (98-107) mmol/L Carbon Dioxide 21 L (22-30) mmol/L Anion Gap 9 mmol/L BUN 17 (9-20) mg/dL Creatinine 0.47 L (0.66-1.25) mg/dL Est GFR (CKD-EPI)AfAm >90 (>60 ml/min/1.73 sqM) Est GFR (CKD-EPI)NonAf >90 (>60 ml/min/1.73 sqM) Glucose 154 H (74-99) mg/dL Plasma Lactic Acid Pato 1.6 (0.7-2.0) mmol/L Calcium 8.4 (8.4-10.2) mg/dL Total Bilirubin 3.0 H (0.2-1.3) mg/dL AST 92 H (17-59) U/L ALT 51 H (4-49) U/L Alkaline Phosphatase 241 H (38-126) U/L Total Protein 6.8 (6.3-8.2) g/dL Albumin 3.1 L (3.5-5.0) g/dL Amylase 39 (30-110) U/L Lipase 94 (23-300) U/L Urine Color Urine Appearance (Clear) Urine pH (5.0-8.0) Ur Specific [place] (1.001-1.035) Urine Protein (Negative) Urine Glucose (UA) (Negative) Urine Ketones (Negative) Urine Blood (Negative) Urine Nitrite (Negative) Urine Bilirubin (Negative) Urine Urobilinogen (<2.0) mg/dL Ur Leukocyte Esterase (Negative) Urine WBC (0-5) /hpf Amorphous Sediment (None) /hpf 12/26/21 Range/Units 20:30 WBC (3.8-10.6) k/uL RBC (4.30-5.90) m/uL Hgb (13.0-17.5) gm/dL Hct (39.0-53.0) % MCV (80.0-100.0) fL MCH (25.0-35.0) pg MCHC (31.0-37.0) g/dL RDW (11.5-15.5) % Plt Count (150-450) k/uL MPV Neutrophils % % Lymphocytes % % Monocytes % % Eosinophils % % Basophils % % Neutrophils # (1.3-7.7) k/uL Lymphocytes # (1.0-4.8) k/uL Monocytes # (0-1.0) k/uL Eosinophils # (0-0.7) k/uL Basophils # (0-0.2) k/uL Macrocytosis Sodium (137-145) mmol/L Potassium (3.5-5.1) mmol/L Chloride (98-107) mmol/L Carbon Dioxide (22-30) mmol/L Anion Gap mmol/L BUN (9-20) mg/dL Creatinine (0.66-1.25) mg/dL Est GFR (CKD-EPI)AfAm (>60 ml/min/1.73 sqM) Est GFR (CKD-EPI)NonAf (>60 ml/min/1.73 sqM) Glucose (74-99) mg/dL Plasma Lactic Acid [place] (0.7-2.0) mmol/L Calcium (8.4-10.2) mg/dL Total Bilirubin (0.2-1.3) mg/dL AST (17-59) U/L ALT (4-49) U/L Alkaline Phosphatase (38-126) U/L Total Protein (6.3-8.2) g/dL Albumin (3.5-5.0) g/dL Amylase (30-110) U/L Lipase (23-300) U/L Urine Color Yellow Urine Appearance Cloudy (Clear) Urine pH 7.5 (5.0-8.0) Ur Specific [place] 1.018 (1.001-1.035) Urine Protein Trace H (Negative) Urine Glucose (UA) 1+ H (Negative) Urine Ketones Negative (Negative) Urine Blood Negative (Negative) Urine Nitrite Negative (Negative) Urine Bilirubin Negative (Negative) Urine Urobilinogen <2.0 (<2.0) mg/dL Ur Leukocyte Esterase Negative (Negative) Urine WBC 1 (0-5) /hpf Amorphous Sediment Rare H (None) /hpf Disposition Clinical Impression: Constipation Narrative: History of pancreatic cancer Disposition: HOME SELF-CARE Condition: Stable Instructions (If sedation given, give patient instructions): Constipation (ED), Abdominal Pain (ED) Additional Instructions: Drink one half of the bottle of magnesium citrate and wait 6 hours, if he does not have a bowel movement drink the other half. Follow-up with your regular physician as directed. Return to the ER immediately if any symptoms worsen, new symptoms arise, or any other problems develop. Is patient prescribed a controlled substance at d/c from ED?: No Referrals: Neli Chacon [Primary Care Provider] - 1-2 days Time of Disposition: 23:53
[2021-12-26] MEDS ORDERED: MORPHINE SULFATE 4 MG/ML SYRINGE IVP STA (19:45)
[2021-12-26 20:11] LABS: ALT 51 U/L (4-49); AST 92 U/L (17-59); African American GFR (CKD) >90 (>60 ml/min/1.73 sqM); Albumin 3.1 g/dL (3.5-5.0); Alkaline Phosphatase 241 U/L (38-126); Amylase 39 U/L (30-110); Anion Gap 9 mmol/L; Blood Urea Nitrogen 17 mg/dL (9-20); Calcium 8.4 mg/dL (8.4-10.2); Carbon Dioxide 21 mmol/L (22-30); Chloride 104 mmol/L (98-107); Glucose 154 mg/dL (74-99); Lipase 94 U/L (23-300); Non-African American GFR(CKD) >90 (>60 ml/min/1.73 sqM); Sodium 134 mmol/L (137-145); Total Protein 6.8 g/dL (6.3-8.2)
[2021-12-26 20:14] LABS: Potassium 3.8 mmol/L (3.5-5.1)
[2021-12-26 20:15] LABS: Basophils % (A) 1 %; Eosinophils # (A) 0.1 k/uL (0-0.7); Eosinophils % (A) 2 %; HCT 40.4 % (39.0-53.0); HGB 13.5 gm/dL (13.0-17.5); Lymphocytes # (A) 1.2 k/uL (1.0-4.8); Lymphocytes % (A) 20 %; MCHC 33.4 g/dL (31.0-37.0); MCV 101.7 fL (80.0-100.0); Macrocytosis Slight; Mean Platelet Volume 10.2; Monocytes # (A) 0.7 k/uL (0-1.0); Monocytes % (A) 12 %; Neutrophils # (A) 3.6 k/uL (1.3-7.7); Neutrophils % (A) 62 %; Platelet Count 225 k/uL (150-450); RBC 3.97 m/uL (4.30-5.90); RDW 15.5 % (11.5-15.5); WBC 5.8 k/uL (3.8-10.6)
[2021-12-26] MEDS ORDERED: SODIUM CHLORIDE 0.9% 500 ML 500 ML IV SCH (20:15)
[2021-12-26 21:01] LABS: Amorphous Sediment,Urine Rare /hpf; Appearance,Urine Cloudy (Clear); Bilirubin,Urine Negative (Negative); Blood,Urine Negative (Negative); Color,Urine Yellow; Glucose,Urine (UA) 1+ (Negative); Ketones,Urine Negative (Negative); Leukocyte Esterase,Urine Negative (Negative); Nitrite,Urine Negative (Negative); PH, Urine 7.5 (5.0-8.0); Protein,Urine Trace (Negative); Specific Gravity,Urine 1.018 (1.001-1.035); Urobilinogen,Urine <2.0 mg/dL (<2.0); WBC,Urine 1 /hpf (0-5)
[2021-12-26 21:40] VITALS: RESP 18
[2021-12-26 22:18] VITALS: PULSE 76
[2021-12-26 23:10] VITALS: BP 104/72
--- NOTE | 2021-12-26 23:19 | CT ---
EXAMINATION TYPE: CT abdomen pelvis w con DATE OF EXAM: 12/26/2021 COMPARISON: 12/07/2021 HISTORY: Abdominal pain CT DLP: 956.8 mGycm Automated exposure control for dose reduction was used. CONTRAST: Performed with IV Contrast, patient injected with 100 mL of Isovue 300. Images obtained from the diaphragm to the floor the pelvis with IV contrast. FINDINGS: There is some infiltrate and atelectasis at both lung bases. There is large hiatal hernia. Stomach is normal size. Gallbladder is intact. There is biliary stent noted. The intrahepatic bile duct are non dilated. Spleen is intact. There is bulkiness of the pancreatic head consistent with a tumor mass and measures 4 cm in diameter. There is possible 1.5 cm low-density mass in the inferior right lobe of the liver. There is subtle 1 cm hypodensity in the inferior lateral right lobe of the liver. There is no adrenal mass. Kidneys show satisfactory contrast opacification. There is no hydronephrosi s. Ureters are not dilated. There is no retroperitoneal adenopathy. Bladder distends smoothly. There is no edema or hernia. No free fluid in the pelvis. There is retained fecal material in the rectum th at measures 7.5 cm. There is no ascites or free air. No bowel obstruction. Lumbar spine is intact. No compression fracture. Bony pelvis is intact. Hip joints are intact. Sacroiliac joints are intact. IMPRESSION: Stent appears in good position. There is decompression of the dilated gallbladder compared to old exa m. Pancreatic mass without change. Hypodense areas in the inferior right lobe of the liver could relate to metastatic disease. There is some infiltrate and atelectasis at the lung bases which is increased compared to last exam.
[2021-12-26] MEDS ORDERED: MAGNESIUM CITRATE 296 ML BOTTLE PO ONE (23:32)
[2021-12-27] MEDS ORDERED: MAGNESIUM CITRATE 296 ML BOTTLE PO ONE (00:15)
== END 2021-12-27 00:10 | disposition home or self-care (01) ==
LOC: EC 15:48
DX: K59.00 Constipation, unspecified (principal); I10 Essential (primary) hypertension; Z86.73 Personal history of transient ischemic attack (TIA), and cerebral infarction without residual deficits; Z82.49 Family history of ischemic heart disease and other diseases of the circulatory system
CPT/HCPCS: 36415; 80053; 82150; 83605; 83690; 85025; 81001; 74177; 99285; 96374; 96375; J2270; J2405; Q9967